=== PATIENT | female | born 1950 | race Caucasian/White ===

== ENCOUNTER 2017-05-11 09:49 | Outpatient (CLI) | payer OTHER, MEDICAID | END 2017-05-11 20:59 | disposition home or self-care (01) | LOC: SMA 09:49 | PROVIDERS: ATTEND Family Medicine | DX: Z12.31 Encounter for screening mammogram for malignant neoplasm of breast (principal) | CPT/HCPCS: 77067 ==

== ENCOUNTER → 2018-04-25 | Outpatient (CLI) | payer BC, MEDICAID | END | disposition home or self-care (01) | LOC: SMA 14:14 | PROVIDERS: ATTEND Family Medicine | DX: Z12.31 Encounter for screening mammogram for malignant neoplasm of breast (principal) | CPT/HCPCS: 77067 ==